=== PATIENT | female | born 1960 | race Caucasian/White ===

== ENCOUNTER 2023-12-06 10:53 | Emergency (ER) | payer BC, SELFPAY ==
[2023-12-06 11:00] VITALS: BP 181/91
[2023-12-06 11:10] VITALS: BMI 27.7
[2023-12-06] MEDS: TYLENOL 650 MG PO (11:46)
[2023-12-06] MEDS: DECADRON 10 MG PO (11:46)
[2023-12-06] MEDS: MOTRIN 400 MG PO (11:46)
--- NOTE | 2023-12-06 12:02 | ED.GENMED ---
History of Present Illness
General
Chief Complaint: Musculo-Skeletal Complaint
Source: patient
Exam Limitations: none
Time Seen by Provider: 12/06/23 11:08
Nursing documentation reviewed up to this point in time: agreed with
History of Present Illness
History of Present Illness:
Patient presents to ED secondary to persistent left-sided neck pain, after waking from sleep with pain approximate 1 month ago. Patient states that she is currently going through divorce and her divorce proceedings has gotten worse, prior to onset
of her neck pain. Denies direct trauma. Denies loss of sensation or weakness. Denies fever or chills. Denies headache. Pain is present at rest, but worse with any neck movement. Denies chest pain or shortness of breath. Denies recent travel
or surgery. Denies nausea or vomiting. Denies previous history of similar symptoms. Denies previous neck injury.
Past History
Past History
ED Past Medical History: Other (Kidney stones) and Other (DVT)
ED Past Surgical History: None
Social History
Tobacco: Non-smoker
Alcohol: Occasional
Drug: None
Personal:
Living: with family
Employment: Employed
Family History
Family History: Other (no gout)
Review of Systems
Review of Systems
Allergies reviewed?: Yes
All Other Systems: ROS reviewed and negative except as documented in HPI and ROS
Constitutional: Reports no symptoms; Denies fever
EENT: Reports no symptoms; Denies sore throat
Respiratory: Reports no symptoms; Denies trouble breathing
Cardiac: Reports no symptoms; Denies chest pain
Musculoskeletal: Reports neck pain
Skin: Reports no symptoms
Neurological: Reports no symptoms; Denies dizzy, headache, weakness or numbness
Phy Exam
Physical Exam
Physical Exam:
Physical Exam
General: mild painful distress, not acutely ill. afebrile
Head: nc/at. eomi
Neck: supple. no meningeal signs. normal posterior pharynx. ROM, limited due to pain. mild diffuse neck, as well as upper back tenderness to palpation, without swelling/deformity
Neuro: alert and oriented. no focal neurological deficits
Skin: no rash
Psychiatric: well kept. interactive and cooperative
Extremities: no edema. no calf tenderness.
Course
Orders/Labs/Results
Orders:
Orders
12/06/23 11:42
Acetaminophen [Tylenol] 650 mg PO NOW STA
Dexamethasone Pf [Decadron] 10 mg PO NOW STA
Ibuprofen [Motrin] 400 mg PO NOW STA
12/06/23 11:43
CR Cervical Spine 4 Or 5 Vw Urgent
Comment:
Reason For Exam: neck pain
12/06/23 11:54
D-Dimer Urgent
12/06/23 12:31
Ice Pack-Treatment DIRECTED
Location: neck
Vital Signs
Initial and Last Documented VS:
Initial Vital Signs
Temp Pulse Resp BP Pulse Ox
97.7 F 87 18 181/91 100
12/06/23 11:00 12/06/23 11:00 12/06/23 11:00 12/06/23 11:00 12/06/23 11:00
Last Documented Vital Signs
Temp Pulse Resp BP Pulse Ox
97.7 F 70 18 144/78 100
12/06/23 11:00 12/06/23 12:50 12/06/23 12:50 12/06/23 12:50 12/06/23 12:50
MDM/Problems Addressed
MDM/Problems Addressed:
Cervical spine x-ray: no acute findings.
History and exam consistent with nonspecific neck pain, with associated muscle spasm, likely multifactorial including, possible arthritis versus underlying disc disease versus increased recent stress. Otherwise, patient is afebrile and
neurovascularly intact.
D-dimer checked, secondary to patient's previous history of nonspecific DVT.
Patient will be discharged home in stable condition, with recommendation to follow-up with her primary care physician for reevaluation, including potential MRI as an outpatient, if symptoms persist.
*Critical Care Note
Total Time (30-74mins, 75-104mins- exclusive of procedures): Not Applicable
ED Attending Note
-
Portions of this chart may have been created with voice recognition software.� Occasional wrong word or��sound alike� substitutions may have occurred due to the inherent limitations of voice recognition software.
Discharge Plan
Departure
Patient Disposition: Home (Routine Discharge)
Date of Disposition: 12/06/23
Time of Disposition: 13:11
Patient with high blood pressure during this ER visit?: Yes
Discharge Problem:
Neck pain
Instructions: Neck Pain ED
Prescriptions:
New
diazepam [Valium] 2 mg tablet
2 mg PO TID PRN (Reason: muscle spasm) Qty: 5 0RF
ibuprofen 600 mg tablet
600 mg PO TID PRN (Reason: Pain) Qty: 20 0RF
No Action
Tylenol Pm
3 tab PO HS
rivaroxaban [Xarelto] 15 MG tablet
20 mg PO DAILY
oxycodone-acetaminophen 5 MG/325 MG tablet
1 tab PO Q4HPRN PRN (Reason: pain) Qty: 13 0RF
tamsulosin 0.4 MG capsule
0.4 mg PO DAILY Qty: 7 0RF
ondansetron 4 MG tablet,disintegrating
4 mg PO TIDPRN PRN (Reason: NAUSEA) Qty: 9 0RF
hydrocodone-acetaminophen 1 TABLET tablet
1 - 2 tab PO Q4HPRN PRN (Reason: pain) Qty: 15 0RF
ondansetron 4 MG tablet,disintegrating
4 mg PO TIDPRN PRN (Reason: nausea/vomiting) Qty: 15 0RF
ibuprofen 600 MG tablet
600 mg PO Q6HPRN PRN (Reason: pain) Qty: 20 0RF
tamsulosin 0.4 MG capsule
0.4 mg PO DAILY Qty: 15 0RF
levofloxacin 500 MG tablet
500 mg PO DAILY Qty: 7 0RF
Referrals:
Nghia Brock MD [Family Provider] -
Activity Restrictions/Additional Instructions:
As discussed, please follow-up with your primary care physician for reevaluation, including potential MRI as an outpatient, if your neck pain persists. Your prescriptions have been sent electronically to [facility] in [place].
Interventions
Interventions:
*Risk Screen - Suicide Last Done: 12/06/23 11:02
*General Assessment Last Done: 12/06/23 11:10
*Neglect/Abuse Screening Last Done: 12/06/23 11:02
*Nursing Disposition Last Done: 12/06/23 13:48
ED-Musculoskeletal Assessment Last Done: 12/06/23 11:10
Discharge Date and Time
Discharge Date/Time: 12/06/23 13:48
Print Language: LIBYAN
[2023-12-06 12:46] LABS: D-Dimer < 0.27 ug/mlFEU (0.00-0.50)
[2023-12-06 12:50] VITALS: BP 144/78
== END 2023-12-06 13:48 | disposition home or self-care (01) ==
LOC: EMR 10:53
PROVIDERS: EMERGENCY PHYSICIAN Emergency Medicine; FAMILY PHYSICIAN Family Medicine
DX: M54.2 Cervicalgia (principal); R03.0 Elevated blood-pressure reading, without diagnosis of hypertension
CPT/HCPCS: 99284; 72050; 85379

== ENCOUNTER 2024-03-13 18:41 | Inpatient (IN) | payer BC, SELFPAY ==
[2024-03-13 13:33] VITALS: BP 140/73
[2024-03-13 14:08] LABS: ALT (SGPT) 16 U/L (0-35); AST (SGOT) 15 U/L (14-36); Albumin 4.3 g/dl (3.5-5.0); Alkaline Phosphatase 65 U/L (38-126); Blood Urea Nitrogen 14 mg/dl (7-17); Calcium 9.6 mg/dl (8.4-10.2); Carbon Dioxide 23 mmol/L (22-30); Chloride 101 mmol/L (98-107); Glucose 193 mg/dl (70-99); Potassium 4.1 mmol/L (3.5-5.1); Sodium 138 mmol/L (135-145); Total Bilirubin 0.4 mg/dl (0.2-1.3); Total Protein 7.3 g/dl (6.3-8.2); eGFR > 60.00
[2024-03-13 14:12] LABS: COVID-19 Antigen Negative (Negative)
[2024-03-13 14:23] LABS: % Basophils 0.3 % (0-2); % Immature Granulocytes 0.8 % (0-0.5); % Lymphocytes 5.9 % (20.5-51.1); % Monocytes 8.4 % (1.7-9.3); % Neutrophils 84.6 % (42.2-75.2); Absolute Basophils 0.1 10^3/uL (0-0.2); Absolute Immature Granulocytes 0.1 10^3/uL (0-0.05); Absolute Monocytes 1.5 10^3/uL (0.1-0.6); Absolute Neutrophils 14.5 10^3/uL (1.4-6.5); Hemoglobin 12.9 g/dL (12.0-16.0); Mean Corp Hgb Conc. 33.9 g/dL (33.0-37.0); Mean Corpuscular Hgb 30.6 pg (27.0-31.0); Mean Platelet Volume 9.3 fL (7.4-10.4); Nucleated Red Blood Cells % 0 %; Platelet Count 315 10^3/uL (130-400); Red Blood Cell Count 4.22 10^6/uL (4.20-5.40); Red Cell Dist. Width 12.3 % (11.5-14.5); White Blood Cell Count 17.2 10^3/uL (4.8-10.8)
--- NOTE | 2024-03-13 14:31 | ED.GENMED ---
History of Present Illness
General
Chief Complaint: Flank Pain
Source: patient and family
Exam Limitations: none
Time Seen by Provider: 03/13/24 13:55
Nursing documentation reviewed up to this point in time: agreed with
History of Present Illness
History of Present Illness:
63-year-old female remote history of DVT not currently anticoagulated presenting to the emergency department today with concerns of cough upper respiratory symptoms over the past 2 weeks. Went to urgent care yesterday was started on steroid and
azithromycin. Ongoing cough. Denies significant shortness of breath or chest pain. Also noticed left-sided flank discomfort and claims that sometimes when she coughs too hard she will 'dislodge a kidney'.. She claims this feels similar to
previous kidney stones. The discomfort to the left side is intermittently sharp and achy starting mainly today no changes urination no fevers.
Past History
Past History
ED Past Medical History: Other (Kidney stones) and Other (DVT)
ED Past Surgical History: None
Social History
Tobacco: Non-smoker
Alcohol: Occasional
Drug: None
Personal:
Living: with family
Employment: Employed
Family History
Family History: Other (no gout)
Review of Systems
Review of Systems
Allergies reviewed?: Yes
All Other Systems: ROS reviewed and negative except as documented in HPI and ROS
Phy Exam
Physical Exam
Physical Exam:
GENERAL: Alert , in no apparent distress
EYE: pupils equal and reactive
NECK: Supple, no significant adenopathy.
ENT: o/p clr, mmm.
CARDIAC: Regular rate and rhythm .
LUNGS: Clear breath sounds bilaterally, no acute respiratory distress, no wheezes/rales/rhonchi
ABDOMEN: Soft, without focal tenderness, no r/g, no cvat
NEUROLOGICAL: Alert and oriented, no focal neuro deficits
SKIN: Warm and dry, skin intact.
MUSCULOSKELETAL: No edema, well perfused.
PSYCH: Normal and appropriate interaction.
Course
Orders/Labs/Results
Orders:
Orders
03/13/24 13:41
COVID-19 Antigen Urgent
Source: Nasal Swab
Complete Blood Count/With Diff Urgent
Comprehensive Metabolic Panel Urgent
INF RAPID [Influenza A+B Rapid Molecular] Urgent
YARELI Source: Nasal Swab
Specimen Description:
Date Specimen was Collected: 03/13/24
Time Specimen was Collected: 13:33
03/13/24 13:56
CT Abd/pel Without Iv Or Oral Urgent
Comment:
Reason For Exam: flank pain left side hx of stones
03/13/24 14:28
Ketorolac [Toradol] 15 mg IV NOW STA
Ondansetron Injectable [Zofran] 4 mg IV NOW STA
Chest [CR Chest - 2 Views ] Urgent
Comment:
Reason For Exam: cp sob
03/13/24 14:29
0.9% Sodium Chloride 1000 ml [Nss] 1,000 ml IV BOLUS
03/13/24 16:32
Urinalysis Reflex To Culture Urgent
Date Specimen was Collected: 03/13/24
Time Specimen was Collected: 13:33
Urine Microscopic Reflex Cult Urgent
Urine Culture Urgent
YARELI Source: U
Specimen Description:
Date Specimen was Collected: 03/13/24
Time Specimen was Collected: 13:33
03/13/24 17:23
CefTRIAXone [Rocephin] 1,000 mg IV NOW STA
Abnormal Lab Results
03/13/24 03/13/24
13:41 16:32
WBC 17.2 H 10^3/uL
(4.8-10.8)
Abs Immat Gran (auto) 0.1 H 10^3/uL
(0-0.05)
Absolute Neuts (auto) 14.5 H 10^3/uL
(1.4-6.5)
Absolute Lymphs (auto) 1.0 L 10^3/uL
(1.2-3.4)
Absolute Monos (auto) 1.5 H 10^3/uL
(0.1-0.6)
Immature Gran % 0.8 H %
(0-0.5)
Neutrophils % 84.6 H %
(42.2-75.2)
Lymphocytes % 5.9 L %
(20.5-51.1)
Glucose 193 H mg/dl
(70-99)
Ur Occult Blood Reflex 3+ A
(Negative)
Urine Nitrite (Reflex) Positive A
(Negative)
Leukocyte Esterase Rfl 2+ A
(Negative)
Urine RBC 3-6 A /HPF
(0-2)
Urine WBC (Reflex) 26-30 A /HPF
(0-5)
Urine Bacteria (Reflex) Many A
(Negative)
Urine Albumin (Reflex) 1+ A
(Neg - Trace)
03/13/24 13:41
03/13/24 13:41
Vital Signs
Initial and Last Documented VS:
Initial Vital Signs
Temp Pulse Resp BP Pulse Ox
98.9 F 104 18 140/73 99
03/13/24 13:33 03/13/24 13:33 03/13/24 13:33 03/13/24 13:33 03/13/24 13:33
Last Documented Vital Signs
Temp Pulse Resp BP Pulse Ox
100.4 F H 104 18 133/61 100
03/13/24 17:42 03/13/24 17:42 03/13/24 17:42 03/13/24 17:42 03/13/24 17:42
MDM/Problems Addressed
MDM/Problems Addressed:
63-year-old female presenting to the emergency department with upper respiratory symptoms over the past 2 weeks. Started on steroids and azithromycin yesterday but is concerned she could have a pneumonia. She does have ongoing cough denies
shortness of breath or chest pain. Also noticed intermittent left-sided flank pain over the past few hours. She believes this could be denies any fevers mildly tachycardic on arrival white count elevated to 17.2 however she just started high-dose
steroids. Here her urinalysis appears to be consistent with infection many bacteria significant white blood cells. CT scan was performed that showed inflammation to the kidney potentially consistent with Haroon however there is also hydro unclear if
there is a recently passed stone or some other obstructive measure. This was discussed with the patient. Here she still in pain and feels. Concerning this plan to admit for monitoring and further IV antibiotic and potential consultation as needed.
*Critical Care Note
Total Time (30-74mins, 75-104mins- exclusive of procedures): Not Applicable
ED Attending Note
-
Portions of this chart may have been created with voice recognition software.� Occasional wrong word or��sound alike� substitutions may have occurred due to the inherent limitations of voice recognition software.
Discharge Plan
Departure
Patient Disposition: Admit
Date of Disposition: 03/13/24
Time of Disposition: 18:19
Admit to: Med/Surg
Admit to doctor: Maynor
Presentation/result/management discussed w/ accepting MD/DO: Hospitalist
Patient with high blood pressure during this ER visit?: No
Condition: Good
Covid-19: Not Applicable
Discharge Problem:
Pyelonephritis
Prescriptions:
No Action
Tylenol Pm
3 tab PO HS
rivaroxaban [Xarelto] 15 MG tablet
20 mg PO DAILY
oxycodone-acetaminophen 5 MG/325 MG tablet
1 tab PO Q4HPRN PRN (Reason: pain) Qty: 13 0RF
tamsulosin 0.4 MG capsule
0.4 mg PO DAILY Qty: 7 0RF
ondansetron 4 MG tablet,disintegrating
4 mg PO TIDPRN PRN (Reason: NAUSEA) Qty: 9 0RF
hydrocodone-acetaminophen 1 TABLET tablet
1 - 2 tab PO Q4HPRN PRN (Reason: pain) Qty: 15 0RF
ondansetron 4 MG tablet,disintegrating
4 mg PO TIDPRN PRN (Reason: nausea/vomiting) Qty: 15 0RF
ibuprofen 600 MG tablet
600 mg PO Q6HPRN PRN (Reason: pain) Qty: 20 0RF
tamsulosin 0.4 MG capsule
0.4 mg PO DAILY Qty: 15 0RF
levofloxacin 500 MG tablet
500 mg PO DAILY Qty: 7 0RF
diazepam [Valium] 2 mg tablet
2 mg PO TID PRN (Reason: muscle spasm) Qty: 5 0RF
ibuprofen 600 mg tablet
600 mg PO TID PRN (Reason: Pain) Qty: 20 0RF
Referrals:
Nghia Brock MD [Family Provider] -
Interventions
Interventions:
*Risk Screen - Suicide Last Done: 03/13/24 13:33
*General Assessment Last Done: 03/13/24 13:33
*Neglect/Abuse Screening Last Done: 03/13/24 13:33
*ED COVID-19 Vaccine History Last Done: 03/13/24 13:33
SQ-Guwidm-Sktmunjlhg Assessment Last Done: 03/13/24 14:52
ED-Female Genitourinary Assessment Last Done: 03/13/24 14:52
Discharge Date and Time
Print Language: JAPANESE
[2024-03-13 14:55] VITALS: BP 135/72
[2024-03-13] MEDS: NSS 1000 IV ×2 (14:59→19:28)
[2024-03-13] MEDS: TORADOL 15 MG IV (15:00)
[2024-03-13 16:44] LABS: Urine Albumin 1+ (Neg - Trace); Urine Bilirubin Negative (Negative); Urine Character Clear (Clear); Urine Color Yellow; Urine Glucose Negative (Negative); Urine Ketone Negative (Negative); Urine Leukocyte 2+ (Negative); Urine Nitrite Positive (Negative); Urine Occult Blood 3+ (Negative); Urine Specific Gravity 1.015 (<1.030); Urine Urobilinogen Negative (Neg - 1+)
[2024-03-13 16:52] LABS: Urine Bacteria Many (Negative); Urine Squamous Cell 0-2 /LPF (Few); Urine White Cell 26-30 /HPF (0-5)
[2024-03-13] MEDS: ROCEPHIN 1000 MG IV ×2 (17:37→19:36)
[2024-03-13 17:42] VITALS: BP 133/61
--- NOTE | 2024-03-13 18:33 | HPS.HSE ---
Family Physician
-
Family Physician: Nghia Brock
Chief Complaint
-
flank pain
History of Present Illness
63-year-old female past medical history of kidney stones, DVT not on anticoagulation, presenting with cough, respiratory symptoms over the past 2 weeks. She originally had sore throat, cough, headache, cough and shortness of breath ongoing for 2
weeks. She went to urgent care yesterday and was started on steroid and azithromycin. She has been having ongoing vomiting and diarrhea over this time period. She continues to have cough, shortness of breath but denies any sore throat at this
time although she does some sore throat this morning.
Today she noticed left-sided flank pain which feels similar to prior kidney stones. Pain is sharp and achy. She denies any difficulties with urination or fever. Denies any blood in the urine.
She has seen [facility] before for lithotripsies in the past.
She denies smoking. Denies recent alcohol use.
Medical History
Past Medical History
Past Medical History: Reports Other (kidney stones, DVT not on anticoagulation,)
Past Surgical History: Reports None
Social History
Tobacco: Non-smoker
Alcohol: None
Drug: None
Family History
Family History: Not pertinent
Allergies / Home Medications
Allergies reflects when Allergies were last updated in [facility].
Home Medications with original date entered in [facility]
Allergy/Medication List:
Allergies
Allergy/AdvReac Type Severity Reaction Status Date / Time
clindamycin Allergy Unknown Unknown Verified 12/06/23 11:13
Penicillins Allergy Unknown Rash Verified 12/06/23 11:13
Home Medications
Tylenol Pm 3 tab PO HS 01/08/15
ondansetron 4 mg disintegrating tablet 4 mg PO TIDPRN PRN NAUSEA #9 tabs 01/08/15
oxycodone-acetaminophen 5 mg-325 mg tablet 1 tab PO Q4HPRN PRN pain #13 tabs 01/08/15
rivaroxaban 15 mg tablet (Xarelto) 20 mg PO DAILY dvt 01/08/15
tamsulosin 0.4 mg capsule 0.4 mg PO DAILY #7 caps 01/08/15
hydrocodone 5 mg-acetaminophen 325 mg tablet 1 - 2 tab PO Q4HPRN PRN pain #15 tabs 05/13/20
ibuprofen 600 mg tablet 600 mg PO Q6HPRN PRN pain #20 tabs 05/13/20
levofloxacin 500 mg tablet 500 mg PO DAILY #7 tabs 05/13/20
ondansetron 4 mg disintegrating tablet 4 mg PO TIDPRN PRN nausea/vomiting #15 tabs 05/13/20
tamsulosin 0.4 mg capsule 0.4 mg PO DAILY #15 caps 05/13/20
diazepam 2 mg tablet (Valium) 2 mg PO TID PRN muscle spasm #5 tabs 12/06/23
ibuprofen 600 mg tablet 600 mg PO TID PRN Pain #20 tabs 12/06/23
Review of Systems
-
History Source: Patient
A 12 point ROS was completed and negative except as noted: Yes
Constitutional: Reports No Symptoms
EENT: Reports No Symptoms
Respiratory: Reports See HPI
Cardiac: Reports No Symptoms
Abdomen/GI: Reports See HPI
: Reports No Symptoms
Musculoskeletal: Reports No Symptoms
Skin: Reports No Symptoms
Neurological: Reports No Symptoms
Endocrine: Reports No Symptoms
Hematologic/Lymphatic: Reports No Symptoms
Psych: Reports No Symptoms
Physical Exam
Vital Signs
Vital Signs
Temp Pulse Resp BP Pulse Ox
100.4 F H 104 18 133/61 100
03/13/24 17:42 03/13/24 17:42 03/13/24 17:42 03/13/24 17:42 03/13/24 17:42
Physical Exam
General: Well Developed, Well Nourished and No Apparent Distress
HEENT: NormoCephalic, Moist mucous membranes and Atraumatic
Respiratory: Clear
Cardiac: S1/S2 and Regular Rhythm; No Murmur or Rub
GI: Soft, Non Tender, Non Distended and Normal Bowel Sounds; No Organomegaly
Rectal: Deferred by Provider
Genito-urinary: Costovertebral angle tend (left )
Musculoskeletal: No Clubbing, No Cyanosis and No Edema
Skin: No Rash
Neuro: Nonfocal/grossly intact
Laboratory Results
-
03/13/24 13:41
03/13/24 13:41
Laboratory Results
Total Bilirubin 0.4 mg/dl (0.2-1.3) 03/13/24 13:41
AST 15 U/L (14-36) 03/13/24 13:41
ALT 16 U/L (0-35) 03/13/24 13:41
Alkaline Phosphatase 65 U/L (38-126) 03/13/24 13:41
Data Reviewed
-
Lab Data: Labs Reviewed by me
Old Records: Reviewed
Impression/Plan
-
IMPRESSION:
PLAN:
# Sepsis (fever, leukocytosis, tachycardia) secondary to acute left pyelonephritis
# History of kidney stones
-Chest x-ray unremarkable
-CT abdomen pelvis shows moderate left perinephric edema and moderate left hydronephrosis down to the level of the ureteropelvic junction with no evidence of obstructing ureteral calculus which may be due to recently passed calculus or noncalcific
obstructing entity such as urothelial tumor, subscapular or blood clot
-Urinalysis 26-30 WBC
-Check urine culture, blood culture
-IV fluids
-Ceftriaxone
-Zofran, ketorolac, Dilaudid as needed
-N.p.o.
-Urology consulted
# Upper respiratory infection likely viral
-Chest x-ray unremarkable
-COVID and influenza negative
History of DVT
-Previously treated with anticoagulation
Full code
DVT prophylaxis�heparin
N.p.o.
--- NOTE | 2024-03-13 19:06 | CONS.URO ---
Consultation
-
Date/Time Consultation Requested: 03/13/20241829
Date/Time Consultation Performed: 1854
Requesting Provider: ED
Performing Provider: Sergio
Reason for Consultation: left pyelonephritis
Medical History
History of Present Illness
63 yo female with h/o nephrolithiasis. historically a patient of [facility] [Jeimy Russo/James] at [facility] and ], reports ~ 2 weeks h/o sore throat, cough, headache, cough, vomiting, diarrhea and shortness of breath. She went to urgent care
yesterday and was started on steroid and azithromycin.
Today she noticed left-sided flank pain which feels similar to prior kidney stones. Pain is sharp and achy. She denies any difficulties with urination or fever. Denies any blood in the urine.
Presented to ED and now is to be admitted to hospitalists'.
Past Medical History
Past Medical History: Other (PVT/PE)
Past Surgical History: Urological (03/2014 Cysto + ureteral stenting then ESWL)
Allergies/Home Medications
Allergies
Allergy/AdvReac Type Severity Reaction Status Date / Time
clindamycin Allergy Unknown Unknown Verified 12/06/23 11:13
Penicillins Allergy Unknown Rash Verified 12/06/23 11:13
Home Medications
�Medication �Instructions �Recorded �Confirmed �Type
azithromycin 500 mg tablet 500 mg PO DAILY 03/13/24 03/13/24 History
methylprednisolone 4 mg tablets in 0 mg PO PER PKG DIR 03/13/24 03/13/24 History
a dose pack
Physical Exam
Vital Signs
Vital Signs
Temp Pulse Resp BP Pulse Ox
100.4 F H 104 18 133/61 100
03/13/24 17:42 03/13/24 17:42 03/13/24 17:42 03/13/24 17:42 03/13/24 17:42
Lab / Testing Results
Laboratory Results
03/13/24 13:41
03/13/24 13:41
Physical Exam
adult female on ED gurney
appears ill
Genito-urinary: No Costovertebral Tend
Neuro: Awake and Alert
Psych: Calm
Assessment / Plan
-
Suspected left pyelonephritis with perinephric edema and some proximal ureteral dilatation and edema but no stones in ureter; bilateral non-obstructing renal stones.
Leukocytosis might partially reflect corticosteroid.
Rec:
stat Lactic Acid
aggressive hydration, antibiosis and supportive measures
It does NOT appear that urgent placement of a left ureteral stent would provide any benefit.
PAtient was informed that largest of left renal stones is likely too large to pass and should be address surgically after resolution of infection.
Data Reviewed
-
CT Scan: Image personally visualized and interpreted
Lab Data: Labs Reviewed
Old Records: Reviewed
[2024-03-13] MEDS: TYLENOL 650 MG PO (19:26)
[2024-03-13] MEDS: STERILE WATER FOR INJECTION 10 ML IV (19:36)
[2024-03-13 19:40] VITALS: BP 144/66
[2024-03-13 20:39] VITALS: BMI 25.0
--- NOTE | 2024-03-13 20:54 | PHA.KIN.INIT ---
Assessment / Plan
- Assessment
Renal Function: Appears similar to baseline
Has Patient Previously Received this Agent: Previous Regimen was (03/09/14 GENTAMICIN 100MG IV Q12H)
- Plan
GENTAMICIN 100MG IV Q12H - TR = 0.34/P = 3.6
Initial Pharmacokinetics Note
- -
Patient Age: 63
Patient Sex: Female
Antibiotic: Gentamicin
Antibiotic Day #: 1
Indication: Genito-Urinary Tract
Requesting Provider: Ravi CARTER
Pertinent Antimicrobial Allergies:
Allergies
Penicillins Allergy (Unknown, Verified 12/06/23 11:13)
Rash
clindamycin Allergy (Unknown, Verified 12/06/23 11:13)
Unknown
rash
Height / Weight:
Height 5 ft 5 in
Actual Weight 68.039 kg
- Vital Signs / Lab results
Temp Pulse Resp BP Pulse Ox
100.7 F H 110 20 134/75 95
03/13/24 20:40 03/13/24 19:40 03/13/24 19:40 03/13/24 19:40 03/13/24 19:40
Maximum Temperature:
Lab Results - Hematology
03/13/24
13:41
WBC 17.2 H
Lab Results - Chemistry
03/13/24
13:41
BUN 14
Creatinine 0.9
Albumin 4.3
Lab Results - Urine
03/13/24
16:32
Urine Nitrite (Reflex) Positive A
Leukocyte Esterase Rfl 2+ A
Urine WBC (Reflex) 26-30 A
Ur Squamous Epith Cells 0-2
Urine Bacteria (Reflex) Many A
Microbiology Results
03/13/24 13:41 Influenza Types A & B (ARMAND) - Final
Nasal Swab Negative for Influenza A & B, NAAT
Negative results must be combined with clinical observations
and patient history.
Nucleic Acid Amplification test (NAAT)performed on the
[employer] platform.
Historical Micro:
Concomitant Antimicrobials:
[2024-03-13] MEDS: HEPARIN 5000 UNITS SC (20:56)
[2024-03-13] MEDS: GENTAMICIN 53 MG IV (21:22)
[2024-03-13 22:44] VITALS: BP 108/56; BMI 25.6
[2024-03-14] MEDS: TYLENOL 650 MG PO ×3 (00:22→15:32)
[2024-03-14 01:11] LABS: % Basophils 0.3 % (0-2); % Immature Granulocytes 0.7 % (0-0.5); % Lymphocytes 12.4 % (20.5-51.1); % Monocytes 8.8 % (1.7-9.3); % Neutrophils 77.8 % (42.2-75.2); Absolute Basophils 0.1 10^3/uL (0-0.2); Absolute Immature Granulocytes 0.2 10^3/uL (0-0.05); Absolute Monocytes 2.2 10^3/uL (0.1-0.6); Absolute Neutrophils 18.9 10^3/uL (1.4-6.5); Hematocrit 33.8 % (37.0-47.0); Hemoglobin 11.9 g/dL (12.0-16.0); Mean Corp Hgb Conc. 35.2 g/dL (33.0-37.0); Mean Platelet Volume 8.9 fL (7.4-10.4); Nucleated Red Blood Cells % 0 %; Platelet Count 300 10^3/uL (130-400); Red Blood Cell Count 3.84 10^6/uL (4.20-5.40); Red Cell Dist. Width 12.4 % (11.5-14.5); White Blood Cell Count 24.3 10^3/uL (4.8-10.8)
[2024-03-14 01:28] LABS: ALT (SGPT) 14 U/L (0-35); AST (SGOT) 16 U/L (14-36); Albumin 3.6 g/dl (3.5-5.0); Alkaline Phosphatase 65 U/L (38-126); Blood Urea Nitrogen 14 mg/dl (7-17); Calcium 8.8 mg/dl (8.4-10.2); Carbon Dioxide 18 mmol/L (22-30); Chloride 105 mmol/L (98-107); Estimated Creatinine Clearance 58 ml/min; Glucose 167 mg/dl (70-99); Potassium 3.7 mmol/L (3.5-5.1); Sodium 136 mmol/L (135-145); Total Bilirubin 0.4 mg/dl (0.2-1.3); Total Protein 6.4 g/dl (6.3-8.2); eGFR > 60.00
--- NOTE | 2024-03-14 03:01 | PTCARENOTE ---
Addendum entered by Abbi Garcia RN 03/14/24 07:14:
labs drawn and updated [employer]ORE TENDER Malika Mccain. recheck temp and given Tylenol at 0540 for temp 102.7. ice packs applied.
Original Note:
at 2244 pt aaox3, reports abdominal pain and nausea. - offered pt prn medications but declined. pt has ivf running. pt sound SOB and wheeze but SpO2= 99% on room air, RR=20 and lungs CTA. flu and covid negative. pt oriented to room w/ call gallardo in
reach. temp=98.5.
labs sent
at 0030 pt c/o feeling cold, rigors, and wlfn=009.7 - administered Tylenol and ice pack for temp. pt also n/v- 300ml. - offered prn nausea meds but pt declined.
at 0300 temp= 100.6 sh=838/50 p=89. pt currently sleeping.
[2024-03-14 03:05] VITALS: BP 103/50
[2024-03-14] MEDS: ANESTHETIC LOZENGE 1 LOZENGE PO (03:33)
[2024-03-14] MEDS: GENTAMICIN 50 IV ×2 (05:25→17:37)
[2024-03-14] MEDS: NSS 1000 IV ×2 (05:25→17:09)
[2024-03-14 07:40] VITALS: BP 116/59
[2024-03-14] MEDS: HEPARIN SC ×2 (09:24→19:58)
--- NOTE | 2024-03-14 14:26 | PHA.KIN.UP ---
Assessment / Plan
- Assessment
Renal Function: Stable
WBC's are: Trending Up
In the past 24 hrs, patient has been: Febrile
- Plan: Continue Present Regimen
Continue: Gentamicin 60mg Q12H
Level ordered to be drawn: consider levels in next few days
- Follow Up
Pharmacy will continue to follow.
FollowUp Pharmacokinetics Note
- -
Patient Age: 63
Patient Sex: Female
Antibiotic: Gentamicin
Antibiotic Day #: 2
Indication: Genito-Urinary Tract
Requesting Provider: Dr. Basilio Hill
Pertinent Antimicrobial Allergies:
Penicillins - Rash
clindamycin - Unknown
rash
Height / Weight:
Height 5 ft 5 in
Actual Weight 69.808 kg
- Vital Signs / Lab Results
Temp Pulse Resp BP Pulse Ox
98.9 F 93 18 116/59 96
03/14/24 11:21 03/14/24 07:40 03/14/24 07:40 03/14/24 07:40 03/14/24 07:40
Lab Results - Hematology
03/13/24 03/14/24
13:41 01:00
WBC 17.2 H 24.3 H
Lab Results - Chemistry
03/13/24 03/14/24
13:41 01:00
BUN 14 14
Creatinine 0.9 0.9
Estimated Creat Clear 58
Albumin 4.3 3.6
03/13/24
23:21
Lactic Acid 1.0
Lab Results - Urine
03/13/24
16:32
Urine Nitrite (Reflex) Positive A
Leukocyte Esterase Rfl 2+ A
Ur Squamous Epith Cells 0-2
Microbiology Results
03/13/24 16:32 Urine Culture - Preliminary
Urine Escherichia coli
01/09/25 13:41 Influenza Types A & B (ARMAND) - Final
Nasal Swab Negative for Influenza A & B, NAAT
Negative results must be combined with clinical observations
and patient history.
Nucleic Acid Amplification test (NAAT)performed on the
[employer] platform.
Concomitant Antimicrobials: ceftriaxone
--- NOTE | 2024-03-14 14:45 | CM ---
Patient seen at bedside.
IA completed
Lives alone in a multi story home with 3 steps to enter, flight to second floor
PLOF: Independent, no device
Denies DME
Denies insecurities
Denies HH/Rehab
PCP: Nghia Brock
Pharmacy: [facility]
Plan: home, no needs
son to transport
[2024-03-14 15:17] VITALS: BP 130/66
[2024-03-14] MEDS: PROTONIX 40 MG PO (15:32)
--- NOTE | 2024-03-14 16:07 | W.PN.HOSP.TC ---
Today's Communication/Plan
-
CW ABX
Follow cx data
Assessment / Plan
Assessment / Plan
# Sepsis (fever, leukocytosis, tachycardia) secondary to acute left pyelonephritis
# History of kidney stones
-Chest x-ray unremarkable
-CT abdomen pelvis shows moderate left perinephric edema and moderate left hydronephrosis down to the level of the ureteropelvic junction with no evidence of obstructing ureteral calculus which may be due to recently passed calculus or noncalcific
obstructing entity such as urothelial tumor, subscapular or blood clot
-Urinalysis 26-30 WBC
-Await urine culture, blood culture
- DC further IV fluids .No GI symptoms today. Encourage oral intake
-cw Ceftriaxone
-cw Zofran, ketorolac, Dilaudid as needed
-Urology input noted - no urgent interventions indicated
# Upper respiratory infection likely viral
-Chest x-ray unremarkable
-COVID and influenza negative
History of DVT
-Previously treated with anticoagulation
Full code
DVT prophylaxis�heparin
Anticipated Discharge: 24 - 48 hours
Subjective/Interval History
-
Date of Service: March 14, 2024
Resolved left flank pain.
No nausea vomiting.
No fever chills.
Objective Data
-
Vital Signs:
Vital Signs
Temp Pulse Resp BP Pulse Ox
100.3 F 98 18 130/66 99
03/14/24 15:17 03/14/24 15:17 03/14/24 15:17 03/14/24 15:17 03/14/24 15:17
I&O
03/13/24 03/14/24 03/15/24
06:59 06:59 06:59
Intake Total 1223 / 1223
Output Total 1100 / 1100
Balance 123 / 123
Physical Exam
-
Respiratory: Non Labored Respirations; Negative Accessory Resp Muscle Use
Cardiac: Regular Rhythm, S1/S2 and Tachycardic
GI: Soft, Nontender, Nondistended and Normal Bowel Sounds
Genito-urinary: No Costovertebral Tender
Neuro: AO x 3
Psych: Calm
Data Reviewed
-
Labs: Labs Reviewed by me
[2024-03-14] MEDS: ROCEPHIN 2000 MG IV (17:09)
[2024-03-14] MEDS: STERILE WATER FOR INJECTION 20 ML IV (17:10)
--- NOTE | 2024-03-14 18:00 | W.PN.URO.CBU ---
Today's Communication / Plan
-
npo for op room in am if stil sick please contact dr salcedo if hermodynaically gettng wosre ir=e dropping blood pressure low ozxygen sat tachycardia
Assessment / Plan
-
pt with left hydro on steriods with e coli uti sens await but hydro no obvioud stone in uretr or upj but hydro wbc gihfger despite gent/ iv cephalosporin will obsee tonight unless unstable await cxs but if uti pt shioild be getting
better despite streroids raven place stent ih=[f no better ie pain, or increased wbc, or increae fevr will just change iv abs if resistant
Diagnosis
-
Date of Service: March 14, 2024
-
Patient Diagnosis:
uti fever left hydro no stones in upj but pyelo hydro and fevr chills
Post Op Day:
Subjective
-
no pain but feels sick febrile
Objective
-
Vital Signs
Temp Pulse Resp BP Pulse Ox
98.6 F 98 18 130/66 99
03/14/24 17:36 03/14/24 15:17 03/14/24 15:17 03/14/24 15:17 03/14/24 15:17
Intake and Output
03/13/24 03/14/24 03/15/24
06:59 06:59 06:59
Intake Total 1223 / 1223 3010 / 3010
Output Total 1100 / 1100
Balance 123 / 123 3010 / 3010
Intake:
Oral fluids 120 / 120 2160 / 2160
IV fluids (Total) 1000 / 1000 800 / 800
IV piggybacks 103 / 103 50 / 50
Output:
Emesis 300 / 300
Urine, Voided 800 / 800
Other:
Number of approximated MODERATE 4
amounts of urine
Laboratory Results
03/14/24 01:00
03/14/24 01:00
Review of Systems
-
Constitutional: Fatigue, Night Sweats and Chills
Physical Exam
-
General - well developed, well nourished, no acute distress
Chest - clear bilaterally
Abdomen - soft, non-tender, positive bowel sounds, no CVAT, no incisional pain or distention
Genitalia - normal
Rectal - normal
Skin - warm & dry with no rash
Neuro - AOx3, no motor deficits
Extremities - no clubbing, no cyanosis, no edema
Incision - clean, dry
Dressing - clean, dry, intact
Care Review
Data Reviewed
Discussed with: Hospitalist and Nursing
CT Scan: Image Pers Reviewed
[2024-03-14 22:45] VITALS: BP 116/54
[2024-03-15] VITALS (10 sets, daily range): BP systolic 103–143; BP diastolic 51–82
[2024-03-15] MEDS: TYLENOL 650 MG PO ×3 (03:03→21:48)
[2024-03-15] MEDS: NSS 1000 IV ×2 (05:00→13:45)
[2024-03-15] MEDS: GENTAMICIN 50 IV (05:06)
[2024-03-15 07:13] LABS: Blood Urea Nitrogen 5 mg/dl (7-17); Calcium 8.1 mg/dl (8.4-10.2); Carbon Dioxide 24 mmol/L (22-30); Chloride 106 mmol/L (98-107); Estimated Creatinine Clearance 75 ml/min; Glucose 119 mg/dl (70-99); Potassium 3.1 mmol/L (3.5-5.1); Sodium 138 mmol/L (135-145); eGFR > 60.00
[2024-03-15 07:30] LABS: Hematocrit 29.8 % (37.0-47.0); Hemoglobin 10.2 g/dL (12.0-16.0); Mean Corp Hgb Conc. 34.2 g/dL (33.0-37.0); Mean Corpuscular Hgb 30.4 pg (27.0-31.0); Mean Platelet Volume 9.1 fL (7.4-10.4); Platelet Count 226 10^3/uL (130-400); Red Blood Cell Count 3.35 10^6/uL (4.20-5.40); Red Cell Dist. Width 12.4 % (11.5-14.5); White Blood Cell Count 16.2 10^3/uL (4.8-10.8)
[2024-03-15] MEDS: HEPARIN SC ×2 (08:11→20:01)
[2024-03-15] MEDS: PROTONIX 40 MG PO (08:12)
--- NOTE | 2024-03-15 09:09 | W.PN.URO.CBU ---
Today's Communication / Plan
-
to op room
Assessment / Plan
-
pt with left hydro on steriods with e coli uti sens await despite 2 broad spectrum abs stil rogors chills her wbc went conley=wn but still 16 k feels worse stil febrile despite runnng tylenol FDiscussed with pt options we decided that a
stent dure to hysdronephrosis and ryan may help her recover but does add discomdpfort and a foreign body in site of infection but the fact is the pt is not responding to targetd iv abs and feels toxic raven place stent ryan
Diagnosis
-
Date of Service: March 15, 2024
-
Patient Diagnosis:
Post Op Day:
Patient Diagnosis:
uti fever left hydro no stones in upj but pyelo hydro and fevr chills
Post Op Day:
Subjective
-
lfeels poorly chills rigors less flank pain
Objective
-
Vital Signs
Temp Pulse Resp BP Pulse Ox
97.8 F 78 16 127/72 96
03/15/24 07:00 03/15/24 07:00 03/15/24 07:00 03/15/24 07:00 03/15/24 07:00
Intake and Output
03/14/24 03/15/24 03/16/24
06:59 06:59 06:59
Intake Total 1223 / 1223 4690 / 4690
Output Total 1100 / 1100
Balance 123 / 123 4690 / 4690
Intake:
Oral fluids 120 / 120 2640 / 2640
IV fluids (Total) 1000 / 1000 1950 / 1950
IV piggybacks 103 / 103 100 / 100
Output:
Emesis 300 / 300
Urine, Voided 800 / 800
Other:
Number of approximated MODERATE 5
amounts of urine
Laboratory Results
03/15/24 06:21
03/15/24 06:21
Review of Systems
-
Constitutional: Fatigue and Chills
Abdomen/GI: Abdominal Pain
Physical Exam
-
General -sick appears toxic rigors
Chest - clear bilaterally
Abdomen - soft, non-tender, positive bowel sounds, no CVAT, no incisional pain or distention
Genitalia - normal
Rectal - normal
Skin - warm & dry with no rash
Neuro - AOx3, no motor deficits
Extremities - no clubbing, no cyanosis, no edema
Incision - clean, dry
Dressing - clean, dry, intact
Care Review
Data Reviewed
Discussed with: Hospitalist, Nursing and Family
CT Scan: Image Pers Reviewed
--- NOTE | 2024-03-15 09:46 | W.SUR.POST ---
Surgical Immediate Post Op
Note
Pre Op Diagnosis: complex uti with left renal hydro
Post Op Diagnosis:
same
Procedure Performed:
cystoscopy rgp with placemnet 6 fr 26 cm jj stent
Primary Surgeon: jose luis
Secondary Surgeons:
Anesthesia: dr anglin and general
Estimated Blood Loss: 1cc
Fluids: nss
Drains/Shunts: 6 fr 26 cmleft jj sten 18 fr ryan
Specimens/Cultures: 0
Doppler/Duplex/Angio (Y/N):
Complications: 0
Operative Findings: gross pyuria left renal pelvis
[2024-03-15] MEDS: ZOFRAN 4 MG IV (10:39)
--- NOTE | 2024-03-15 11:35 | W.PN.HOSP.TC ---
Addendum entered and electronically signed by Rakesh Ortiz MD 03/15/24 11:40:
E. coli sensitivities noted.-Continue ceftriaxone. DC aminoglycosides.
Original Note:
Today's Communication/Plan
-
Continue with ceftriaxone.
Assessment / Plan
Assessment / Plan
# Sepsis (fever, leukocytosis, tachycardia) secondary to acute left pyelonephritis
# History of kidney stones
-Chest x-ray unremarkable
-CT abdomen pelvis shows moderate left perinephric edema and moderate left hydronephrosis down to the level of the ureteropelvic junction with no evidence of obstructing ureteral calculus which may be due to recently passed calculus or noncalcific
obstructing entity such as urothelial tumor, subscapular or blood clot
-Urinalysis 26-30 WBC
-E. coli in urine culture but not bacteremic.
-Patient had a cystoscopy with left ureteral stent placed. There was gross pyuria in the left renal pelvis noted on the cystogram. I do not see mention of any stone. Will follow-up with urology.
-Continue with ceftriaxone and follow sepsis parameters and GI symptoms.
-Encourage oral intake
-cw Zofran, ketorolac, Dilaudid as needed
# Upper respiratory infection likely viral
-Chest x-ray unremarkable
-COVID and influenza negative
History of DVT
-Previously treated with anticoagulation
Full code
DVT prophylaxis�heparin
Anticipated Discharge: 24 - 48 hours
Subjective/Interval History
-
Date of Service: March 15, 2024
Came back from a cystoscopy and left ureteral stent placement.
Feeling nauseous. Not much appetite. Taking only clears. No vomiting. Left flank pain has dissipated.
Having some loose stools. Had fever this morning but none currently. No chills.
Objective Data
-
Labs:
Laboratory Results
03/15/24
06:21
WBC 16.2 H
Hgb 10.2 L
Hct 29.8 L
Plt Count 226 D
Sodium 138
Potassium 3.1 L
Chloride 106
Carbon Dioxide 24
BUN 5 L
Creatinine 0.7
Glucose 119 H
Calcium 8.1 L
Vital Signs:
Vital Signs
Temp Pulse Resp BP Pulse Ox
97.7 F 81 16 132/65 98
03/15/24 11:00 03/15/24 11:00 03/15/24 11:00 03/15/24 11:00 03/15/24 11:00
I&O
03/14/24 03/15/24 03/16/24
06:59 06:59 06:59
Intake Total 1223 / 1223 4690 / 4690 500 / 500
Output Total 1100 / 1100 300 / 300
Balance 123 / 123 4690 / 4690 200 / 200
Review of Systems
-
EENT: Denies Sore Throat
Respiratory: Denies Cough or Trouble Breathing
Cardiac: Denies Chest Pain
Neuro: Denies Dizzy
Physical Exam
-
General: No Apparent Distress
HEENT: Moist Mucous Membranes
Respiratory: Non Labored Respirations; Negative Accessory Resp Muscle Use
Cardiac: Regular Rhythm and S1/S2
GI: Soft
Genito-urinary: No Costovertebral Tender
Neuro: AO x 3
Psych: Calm
Data Reviewed
-
Labs: Labs Reviewed by me
[2024-03-15] MEDS: TORADOL 10 MG IV (13:45)
[2024-03-15] MEDS: ROCEPHIN 2000 MG IV (17:58)
[2024-03-15] MEDS: STERILE WATER FOR INJECTION 20 ML IV (17:58)
[2024-03-16 04:25] VITALS: BP 144/72
[2024-03-16] MEDS: TORADOL 10 MG IV ×2 (06:08→13:42)
--- NOTE | 2024-03-16 06:18 | PTCARENOTE ---
pt reports abd pain r/t stents 8-10; and nausea. pt refused medications -offered throughout the night. at 0600 agreeable to Toradol - see mar. pt continues t be nausea and vomited a small amount, but declined Zofran. provided gingerale, and cool
compresses. ryan continues to be bloody tinged w/
[2024-03-16 06:41] LABS: Hematocrit 28.2 % (37.0-47.0); Hemoglobin 9.9 g/dL (12.0-16.0); Mean Corp Hgb Conc. 35.1 g/dL (33.0-37.0); Mean Corpuscular Hgb 30.8 pg (27.0-31.0); Mean Corpuscular Volume 87.9 fL (81.0-99.0); Mean Platelet Volume 9.2 fL (7.4-10.4); Platelet Count 260 10^3/uL (130-400); Red Blood Cell Count 3.21 10^6/uL (4.20-5.40); Red Cell Dist. Width 12.4 % (11.5-14.5); White Blood Cell Count 14.8 10^3/uL (4.8-10.8)
[2024-03-16 07:07] LABS: Blood Urea Nitrogen 11 mg/dl (7-17); Calcium 8.5 mg/dl (8.4-10.2); Carbon Dioxide 22 mmol/L (22-30); Chloride 108 mmol/L (98-107); Estimated Creatinine Clearance 75 ml/min; Glucose 109 mg/dl (70-99); Potassium 3.4 mmol/L (3.5-5.1); Sodium 139 mmol/L (135-145); eGFR > 60.00
[2024-03-16 07:43] VITALS: BP 132/64
[2024-03-16] MEDS: HEPARIN 5000 UNITS SC (08:06)
[2024-03-16] MEDS: PROTONIX 40 MG PO (08:07)
[2024-03-16] MEDS: KCL 20 MEQ PO (10:05)
--- NOTE | 2024-03-16 10:43 | W.PN.HOSP.TC ---
Addendum entered and electronically signed by Rakesh Ortiz MD 03/16/24 10:50:
hypokalemia -replete
Original Note:
Today's Communication/Plan
-
Continue ceftriaxone
Add antitussives and nebulizers
Add Xanax as needed.
Assessment / Plan
Assessment / Plan
# Sepsis (fever, leukocytosis, tachycardia) secondary to acute left pyelonephritis
# History of kidney stones
-Chest x-ray unremarkable
-CT abdomen pelvis shows moderate left perinephric edema and moderate left hydronephrosis down to the level of the ureteropelvic junction with no evidence of obstructing ureteral calculus which may be due to recently passed calculus or noncalcific
obstructing entity such as urothelial tumor, subscapular or blood clot
-Urinalysis 26-30 WBC
-E. coli in urine culture but not bacteremic.
-Patient had a cystoscopy with left ureteral stent placed. There was gross pyuria in the left renal pelvis noted on the cystogram. I do not see mention of any stone. Will follow-up with urology.
-Continue with ceftriaxone and follow sepsis parameters and GI symptoms.
- Improving WBC and no further fevers
-cw Zofran, ketorolac, Dilaudid as needed
# Upper respiratory infection likely viral
-Chest x-ray unremarkable
-COVID and influenza negative
- Start on nebs , antitussives
- If remains symptomatic we will reconsider use of steroids as sepsis parameters are getting better.
History of DVT
-Previously treated with anticoagulation
Full code
DVT prophylaxis�heparin
Anticipated Discharge: 24 - 48 hours
Subjective/Interval History
-
Date of Service: March 16, 2024
Left flank pain is improved so far. But her main complaint is headache, ongoing cough with phlegm.
She states 2 weeks ago she started with a cough and had flu and COVID testing so far has been negative. She in fact was put on steroids which were discontinued when she came with sepsis and UTI.
Denies any prior history of asthma. Non-smoker.
During the visit today patient was also tearful and concerned about managing himself upon discharge with her symptomatology. No history of anxiety disorder but she is feeling bit overwhelmed with the current medical situation.
Objective Data
-
Labs:
Laboratory Results
03/16/24
06:21
WBC 14.8 H
Hgb 9.9 L
Hct 28.2 L
Plt Count 260
Sodium 139
Potassium 3.4 L
Chloride 108 H
Carbon Dioxide 22
BUN 11
Creatinine 0.7
Glucose 109 H
Calcium 8.5
Vital Signs:
Vital Signs
Temp Pulse Resp BP Pulse Ox
97.5 F 72 18 132/64 95
03/16/24 07:43 03/16/24 07:43 03/16/24 07:43 03/16/24 07:43 03/16/24 10:25
I&O
03/15/24 03/16/24 03/17/24
06:59 06:59 06:59
Intake Total 4690 / 4690 2660 / 2660
Output Total 1250 / 1250
Balance 4690 / 4690 1410 / 1410
Review of Systems
-
Constitutional: Denies Fever or Chills
EENT: Denies Sore Throat
Respiratory: Reports Cough
Cardiac: Denies Chest Pain
Abdomen/GI: Denies Abdominal Pain, Nausea or Vomiting
Neuro: Reports Headache; Denies Dizzy
Physical Exam
-
General: No Apparent Distress
HEENT: Moist Mucous Membranes
Respiratory: Rhonchi (some rhonchi) and Non Labored Respirations; Negative Wheezes or Accessory Resp Muscle Use
Cardiac: Regular Rhythm and S1/S2
GI: Soft and Nontender
Genito-urinary: No Costovertebral Tender
Neuro: AO x 3
Psych: Calm and Anxious
Data Reviewed
-
Labs: Labs Reviewed by me
[2024-03-16] MEDS: DUONEB 3 ML INH ×3 (11:36→18:47)
[2024-03-16] MEDS: XANAX 0.5 MG PO ×2 (12:09→19:25)
--- NOTE | 2024-03-16 12:13 | W.PN.URO.CBU ---
Today's Communication / Plan
-
no new gu interventions
Assessment / Plan
-
pt with left hydro on steriods with e coli uti pansensitive now stented feeling better wbc down still 14 k will continue present care reevaliate shelby calvo
Diagnosis
-
Date of Service: March 16, 2024
-
Patient Diagnosis:
Post Op Day:
Patient Diagnosis:
Post Op Day:
Patient Diagnosis:
uti fever left hydro no stones in upj but pyelo hydro and fevr chills
Post Op Day:
Subjective
-
still lingering discomfort but much improved with stent
Objective
-
Vital Signs
Temp Pulse Resp BP Pulse Ox
97.5 F 78 18 132/64 99
03/16/24 07:43 03/16/24 11:39 03/16/24 11:39 03/16/24 07:43 03/16/24 11:39
Intake and Output
03/15/24 03/16/24 03/17/24
06:59 06:59 06:59
Intake Total 4690 / 4690 2660 / 2660
Output Total 1250 / 1250
Balance 4690 / 4690 1410 / 1410
Intake:
Oral fluids 2640 / 2640 440 / 440
IV fluids (Total) 1950 / 1950 2200 / 2200
Normosol 500 / 500
IV piggybacks 100 / 100 20 / 20
Output:
Urine, Meehan 1250 / 1250
Other:
Number of approximated MODERATE 5
amounts of urine
Number of unmeasured liquid
stools
Rectum 1
Laboratory Results
03/16/24 06:21
03/16/24 06:21
Review of Systems
-
: Flank Pain
Physical Exam
-
General - well developed, well nourished, no acute distress
Chest - clear bilaterally
Abdomen - soft, non-tender, positive bowel sounds, no CVAT, no incisional pain or distention
Genitalia - normal
Rectal - normal
Skin - warm & dry with no rash
Neuro - AOx3, no motor deficits
Extremities - no clubbing, no cyanosis, no edema
Incision - clean, dry
Dressing - clean, dry, intact
Care Review
Data Reviewed
Discussed with: Hospitalist
[2024-03-16] MEDS: ORAJEL 10% GEL 1 APPLIC TOPICAL (15:11)
[2024-03-16 16:22] VITALS: BP 108/57
[2024-03-16] MEDS: ROCEPHIN 2000 MG IV (17:26)
[2024-03-16] MEDS: STERILE WATER FOR INJECTION 20 ML IV (17:26)
[2024-03-16] MEDS: HEPARIN SC (22:43)
[2024-03-16] MEDS: ORAJEL 10% GEL TOPICAL (22:43)
[2024-03-16 22:55] VITALS: BP 101/49
[2024-03-17] MEDS: TORADOL 10 MG IV ×3 (03:49→18:33)
[2024-03-17 04:19] LABS: Hematocrit 27.6 % (37.0-47.0); Hemoglobin 9.6 g/dL (12.0-16.0); Mean Corp Hgb Conc. 34.8 g/dL (33.0-37.0); Mean Corpuscular Hgb 30.9 pg (27.0-31.0); Mean Corpuscular Volume 88.7 fL (81.0-99.0); Platelet Count 291 10^3/uL (130-400); Red Blood Cell Count 3.11 10^6/uL (4.20-5.40); Red Cell Dist. Width 12.7 % (11.5-14.5); White Blood Cell Count 12.5 10^3/uL (4.8-10.8)
[2024-03-17 04:45] LABS: Blood Urea Nitrogen 15 mg/dl (7-17); Calcium 8.1 mg/dl (8.4-10.2); Carbon Dioxide 18 mmol/L (22-30); Chloride 107 mmol/L (98-107); Estimated Creatinine Clearance 75 ml/min; Glucose 132 mg/dl (70-99); Potassium 3.2 mmol/L (3.5-5.1); Sodium 137 mmol/L (135-145); eGFR > 60.00
[2024-03-17 07:45] VITALS: BP 108/67
[2024-03-17] MEDS: DUONEB 3 ML INH ×2 (08:15→15:12)
[2024-03-17] MEDS: ORAJEL 10% GEL TOPICAL ×3 (08:40→21:55)
[2024-03-17] MEDS: HEPARIN SC (08:40)
[2024-03-17] MEDS: PROTONIX 40 MG PO (08:41)
[2024-03-17] MEDS: KCL 40 MEQ PO (08:41)
[2024-03-17 08:53] LABS: Iron 50 ug/dl (37-170); Magnesium 1.8 mg/dl (1.6-2.3)
[2024-03-17 09:01] LABS: Percent Saturation 25 % (20-50); Total Iron Binding Capacity 200 ug/dl (265-497)
[2024-03-17 10:33] LABS: Vitamin D, 25-OH*** < 12.8 ng/mL (30-80)
[2024-03-17] MEDS: DUONEB INH ×2 (11:06→21:44)
[2024-03-17 11:07] LABS: Vitamin B12 656 pg/ml (239-931)
--- NOTE | 2024-03-17 12:17 | W.PN.HOSP.TC ---
Today's Communication/Plan
-
Continue antibiotics
Assessment / Plan
Assessment / Plan
63-year-old female with flank pain
CT of the abdomen and pelvis-moderate left perinephric edema and moderate left hydronephrosis down to the level of the UPJ. No evidence of obstructing calculus which may be due to recently passed calculus or nonspecific obstructing entity.
Herpetic rash on upper lip
Cardiovascular system S1-S2 appreciated
Chest clear to auscultation
Abdomen mild discomfort left side
No pedal edema
# Sepsis secondary to acute left pyelonephritis
She has seen [place] [facility] before for lithotripsies in the past.
Continue antibiotics
E. coli in urine but no bacteremia
Status post cystoscopy and left ureteral stent placement, pyuria noted at that time
White count improving
Meehan catheter continued today also
# URI-likely viral
Chest x-ray unremarkable
COVID and influenza negative
Was started on methylprednisolone and Zithromax as outpatient
Symptomatic treatment
# Hypokalemia-replace
# Anemia-no iron or B12 deficiency noted
# Vitamin D deficiency-replace
# History of DVT-not currently on anticoagulation
# DVT prophylaxis-Lovenox
# Full code
Discussed with nursing at bedside
Anticipated Discharge: Within 24 hours
Subjective/Interval History
-
Date of Service: March 17, 2024
Objective Data
-
Labs:
Laboratory Results
03/17/24
04:04
WBC 12.5 H
Hgb 9.6 L
Hct 27.6 L
Plt Count 291
Sodium 137
Potassium 3.2 L
Chloride 107
Carbon Dioxide 18 L
BUN 15
Creatinine 0.7
Glucose 132 H
Calcium 8.1 L
Vital Signs:
Vital Signs
Temp Pulse Resp BP Pulse Ox
97.9 F 80 17 108/67 100
03/17/24 07:45 03/17/24 08:17 03/17/24 08:17 03/17/24 07:45 03/17/24 08:17
I&O
03/16/24 03/17/24 03/18/24
06:59 06:59 06:59
Intake Total 2660 / 2660 540 / 540
Output Total 1250 / 1250 750 / 750
Balance 1410 / 1410 -210 / -210
--- NOTE | 2024-03-17 12:46 | W.PN.URO.CBU ---
Today's Communication / Plan
-
KEEP GARDNER FOR NOW REVEAUATE DAILY
Assessment / Plan
-
pt with left hydro on steriods with e coli uti pansensitive now stented feeling better wbc down still 14 k will continue present care reevaliate shelby fernandezovi
Diagnosis
-
Date of Service: March 17, 2024
-
Patient Diagnosis:
Post Op Day:
Patient Diagnosis:
Post Op Day:
Patient Diagnosis:
Post Op Day:
Patient Diagnosis:
uti fever left hydro no stones in upj but pyelo hydro and fevr chills
Post Op Day:
Subjective
-
STILL SINUS PROBLEMS BUT IS BETTER
Objective
-
Vital Signs
Temp Pulse Resp BP Pulse Ox
97.9 F 80 17 108/67 100
03/17/24 07:45 03/17/24 08:17 03/17/24 08:17 03/17/24 07:45 03/17/24 08:17
Intake and Output
03/16/24 03/17/24 03/18/24
06:59 06:59 06:59
Intake Total 2660 / 2660 540 / 540
Output Total 1250 / 1250 750 / 750
Balance 1410 / 1410 -210 / -210
Intake:
Oral fluids 440 / 440 540 / 540
IV fluids (Total) 2200 / 2200
Normosol 500 / 500
IV piggybacks 20 / 20
Output:
Urine, Gardner 1250 / 1250 750 / 750
Other:
Number of unmeasured liquid
stools
Rectum 1 1
Laboratory Results
03/17/24 04:04
03/17/24 04:04
Review of Systems
-
: Urgency
Physical Exam
-
General - well developed, well nourished, no acute distress
Chest - clear bilaterally
Abdomen - soft, non-tender, positive bowel sounds, no CVAT, no incisional pain or distention
Genitalia - normal
Rectal - normal
Skin - warm & dry with no rash
Neuro - AOx3, no motor deficits
Extremities - no clubbing, no cyanosis, no edema
Incision - clean, dry
Dressing - clean, dry, intact
Care Review
Data Reviewed
Discussed with: Nursing
[2024-03-17] MEDS: ZOVIRAX OINTMENT 5% 1 APPLIC TOPICAL ×3 (14:28→22:18)
[2024-03-17] MEDS: DRISDOL (VITAMIN D2) 50000 UNITS PO (14:28)
--- NOTE | 2024-03-17 15:16 | CM ---
CM reviewed chart- ADC tomorrow
Pt is POD#2 cysto with stent, ryna continues
Watch for VN needs on dc if ryan remains
Discharge Disposition- home for VN/ryan needs
[2024-03-17 15:19] VITALS: BP 127/75
[2024-03-17] MEDS: ROCEPHIN 2000 MG IV (18:22)
[2024-03-17] MEDS: STERILE WATER FOR INJECTION 20 ML IV (18:23)
[2024-03-17] MEDS: KCL 20 MEQ PO (22:17)
[2024-03-17 22:55] VITALS: BP 138/74
[2024-03-18] MEDS: TORADOL 10 MG IV
[2024-03-18 07:40] VITALS: BP 148/84
[2024-03-18 07:48] LABS: Hematocrit 30.1 % (37.0-47.0); Hemoglobin 10.4 g/dL (12.0-16.0); Mean Corp Hgb Conc. 34.6 g/dL (33.0-37.0); Mean Corpuscular Hgb 30.4 pg (27.0-31.0); Mean Platelet Volume 8.8 fL (7.4-10.4); Platelet Count 340 10^3/uL (130-400); Red Blood Cell Count 3.42 10^6/uL (4.20-5.40); Red Cell Dist. Width 12.6 % (11.5-14.5)
[2024-03-18] MEDS: DUONEB INH ×3 (07:56→15:20)
[2024-03-18 08:31] LABS: Blood Urea Nitrogen 9 mg/dl (7-17); Calcium 8.5 mg/dl (8.4-10.2); Carbon Dioxide 21 mmol/L (22-30); Chloride 106 mmol/L (98-107); Estimated Creatinine Clearance 75 ml/min; Glucose 123 mg/dl (70-99); Potassium 3.5 mmol/L (3.5-5.1); Sodium 136 mmol/L (135-145); eGFR > 60.00
[2024-03-18] MEDS: ORAJEL 10% GEL TOPICAL ×2 (09:37→16:09)
[2024-03-18] MEDS: PROTONIX 40 MG PO (09:38)
[2024-03-18] MEDS: VITAMIN D3 (cholecalciferol) 50 MCG PO (09:38)
[2024-03-18] MEDS: ZOVIRAX OINTMENT 5% TOPICAL ×3 (09:44→16:08)
--- NOTE | 2024-03-18 10:16 | CM ---
Patient seen bedside.
Patient aware of CM availability should home care needs arise.
Per patient she is anticipating Meehan catheter being removed prior to d/c.
Her son will stay with her a few days.
Plan: home no needs anticipated.
--- NOTE | 2024-03-18 10:22 | W.PN.HOSP.TC ---
Addendum entered and electronically signed by Nidia Vazquez MD 03/18/24 14:48:
Discussed with urology
Voiding after Meehan
ID and urology valuation appreciated
More than 30 minutes spent in discharge including
Final examination of the patient
Summarizing hospital stay
Instructions for continuing care to all relevant caregivers
Preparation of discharge records, prescriptions, and referral forms
Total time spent (in minutes): 38 min
Original Note:
Today's Communication/Plan
-
Meehan catheter-defer to urology
Antibiotics
Assessment / Plan
Assessment / Plan
63-year-old female with flank pain
CT of the abdomen and pelvis-moderate left perinephric edema and moderate left hydronephrosis down to the level of the UPJ. No evidence of obstructing calculus which may be due to recently passed calculus or nonspecific obstructing entity.
Herpetic rash on upper lip,
Cardiovascular system S1-S2 appreciated
Chest clear to auscultation
Abdomen mild discomfort left side
No pedal edema
Wants to go home
# Sepsis secondary to acute left pyelonephritis
She has seen [place] [facility] before for lithotripsies in the past.
Continue antibiotics
E. coli in urine but no bacteremia
Status post cystoscopy and left ureteral stent placement, pyuria noted at that time
White count has normalized
Meehan catheter -defer to urology
# Oral herpetic lesions-upper lip
Patient complains of congestion and pain and headache
Infectious disease to weigh in
# URI-likely viral
Chest x-ray unremarkable
COVID and influenza negative
Was started on methylprednisolone and Zithromax as outpatient
Symptomatic treatment
# Hypokalemia-replace
# Anemia-no iron or B12 deficiency noted
# Vitamin D deficiency-replace
# History of DVT-not currently on anticoagulation
# DVT prophylaxis-Lovenox
# Full code
Discussed with nursing at bedside
Anticipated Discharge: Within 24 hours
Subjective/Interval History
-
Date of Service: March 18, 2024
Objective Data
-
Labs:
Laboratory Results
03/18/24
07:02
WBC 8.0
Hgb 10.4 L
Hct 30.1 L
Plt Count 340
Sodium 136
Potassium 3.5
Chloride 106
Carbon Dioxide 21 L
BUN 9
Creatinine 0.7
Glucose 123 H
Calcium 8.5
Vital Signs:
Vital Signs
Temp Pulse Resp BP Pulse Ox
98.5 F 90 18 148/84 96
03/18/24 07:40 03/18/24 07:40 03/18/24 07:40 03/18/24 07:40 03/18/24 07:40
I&O
03/17/24 03/18/24 03/19/24
06:59 06:59 06:59
Intake Total 540 / 540 1680 / 1680
Output Total 750 / 750 2500 / 2500
Balance -210 / -210 -820 / -820
--- NOTE | 2024-03-18 11:12 | CON.ID ---
Consultation
-
Date/Time Consultation Requested: March 18, 2024 0952
Date/Time Consultation Performed: March 18, 2024 1110
Requesting Provider: Dr. Nidia Vazquez
Performing Provider: Dr. Alicia Vines
Reason for Consultation: Headache, herpes around the mouth
Chief Complaint / Past History
Chief Complaint
Lesions on lip and nose
History of Present Illness
63-year-old female with history of nephrolithiasis presented to the hospital on March 13 with left flank pain. Patient reports that she has not been feeling well for about 3 weeks with head cold, sinus congestion, frontal headache, initially with
a sore throat which now resolved. The day prior to admission, she went to urgent care and was prescribed steroid with azithromycin. On March 13, she noted left flank pain similar to her previous kidney stones. Positive fevers and chills. In the
ER she was febrile to 103, white count elevated. CAT scan of the abdomen pelvis showed left pyelonephritis and left hydronephrosis without obstructing stone. Patient was started on ceftriaxone. However she continued to have fevers and elevated
white count. She was taken to the OR on March 15, status post cystoscopy and left ureter stent placement. No obstructing stone noted. Large amount of purulent urine drained out from the stent. On March 14, patient noted to have vesicular
lesions on her upper lip. Lesions have progressed up the outside of her nose. Patient reports no history of cold sores. Sores are very painful. She continues to have sinus congestion, frontal headache stable. COVID-negative. Influenza negative.
Past History
Additional Past Medical History:
Nephrolithiasis
History of DVT
Allergy History:
clindamycin Allergy (Unknown, Verified 12/06/23 11:13)
Unknown
Penicillins Allergy (Unknown, Verified 12/06/23 11:13)
Rash
Medications Reviewed: Yes
Current Antibiotics:
Ceftriaxone day 6
Social History
Tobacco: Non-Smoker
Alcohol: None
Drug: None
Family History
Family History: Not Pertinent
Review of Systems
Review of Systems
HEENT: Sinus Problems; Negative Stiff Neck
Cardiovascular: Negative Chest Pain
Respiratory: Negative Dyspnea or Cough
Gasteroenterology: Negative Nausea, Vomiting or Diarrhea
Genital / Urological: Stones
Endocrine: Weakness
Neurological: Negative Dizziness
All systems: All other systems were reviewed and were negative
Vital Signs
Temp Pulse Resp BP Pulse Ox
98.5 F 90 18 148/84 96
03/18/24 07:40 03/18/24 07:40 03/18/24 07:40 03/18/24 07:40 03/18/24 07:40
Physical Exam
Physical Exam
Constitutional: No Acute Distress
Head: Other (Vesicular lesions on philtrum and apex of nose. Few lesions on lip crusting.)
Eyes: No Conjunctival Hemorrhage and Sclera Anicteric
Cardiovascular: Regular Rate and S1/S2
Pulmonary: Clear
Gastrointestinal: Soft, Non Tender, Non Distended and Normal Bowel Sounds
Genito-Urinary: Meehan and Clear Urine; Negative CVA Tenderness
Extremities: Negative Edema
Neurological: AO x 3; Negative Meningeal Signs
Lab / Diagnostic Study Results
03/18/24 07:02
03/18/24 07:02
Abs Immat Gran (auto) 0.2 10^3/uL (0-0.05) H 03/14/24 01:00
Absolute Neuts (auto) 18.9 10^3/uL (1.4-6.5) H 03/14/24 01:00
Absolute Lymphs (auto) 3.0 10^3/uL (1.2-3.4) 03/14/24 01:00
Absolute Monos (auto) 2.2 10^3/uL (0.1-0.6) H 03/14/24 01:00
Absolute Basos (auto) 0.1 10^3/uL (0-0.2) 03/14/24 01:00
Immature Gran % 0.7 % (0-0.5) H 03/14/24 01:00
Neutrophils % 77.8 % (42.2-75.2) H 03/14/24 01:00
Lymphocytes % 12.4 % (20.5-51.1) L 03/14/24 01:00
Monocytes % 8.8 % (1.7-9.3) 03/14/24 01:00
Eosinophils % 0.0 % (0-6) 03/14/24 01:00
Basophils % 0.3 % (0-2) 03/14/24 01:00
Lactic Acid 1.0 mmol/L (0.7-2.0) 03/13/24 23:21
Ur Squamous Epith Cells 0-2 /LPF (Few) 03/13/24 16:32
Microbiology Results
Micro:
03/14/24 00:59 Blood Culture - Preliminary
Blood/Venous No Growth in 4 days- Final report to follow
03/13/24 23:21 Blood Culture - Preliminary
Blood/Venous No Growth in 4 days- Final report to follow
03/13/24 16:32 Urine Culture - Final
Urine Escherichia coli
03/13/24 13:41 Influenza Types A & B ([facility]) - Final
Nasal Swab Negative for Influenza A & B, NAAT
Negative results must be combined with clinical observations
and patient history.
Nucleic Acid Amplification test (NAAT)performed on the
[employer] platform.
03/13/14 CT a/p: There is moderate left perinephric edema and moderate left hydronephrosis down to the level of the ureteropelvic junction with no evidence of obstructing ureteral calculus at this location. This finding may be on the basis of recently
passed calculus or noncalcific obstructing entities such as urothelial tumor, sloughed papilla or blood clot. There are multiple bilateral nonobstructing renal calculi measuring up to 10 mm
Assessment / Plan
# Complicated UTI/left pyelo and nonobstructing hydronephrosis (possibly passed stone)
# s/p sepsis
-s/p left ureter placement 03/14
- Urine cx E. coli
- Can transition ceftriaxone to cephalexin 500mg po qid through 03/26/24.
# Orolabial HSV, first episode
- Prescribed valacyclovir 2g po bid x 2 doses (although maybe too late for benefit)
# Viral URI
-Supportive care.
-Consider Flonase (not in our hospital formulary).
--- NOTE | 2024-03-18 12:46 | W.PN.URO.CBU ---
Today's Communication / Plan
-
voiding trial
Assessment / Plan
-
pt with left hydro on steriods with e coli uti pansensitive now stented feeling better ryan out homw if stable outpatient stone surgery
Diagnosis
-
Date of Service: March 18, 2024
-
Patient Diagnosis:
Post Op Day:
Patient Diagnosis:
Post Op Day:
Patient Diagnosis:
Post Op Day:
Patient Diagnosis:
Post Op Day:
Patient Diagnosis:
uti fever left hydro no stones in upj but pyelo hydro and fevr chills
Post Op Day:
Subjective
-
rerady for d/c pleaaw remove ryan
Objective
-
Vital Signs
Temp Pulse Resp BP Pulse Ox
98.5 F 90 18 148/84 96
03/18/24 07:40 03/18/24 07:40 03/18/24 07:40 03/18/24 07:40 03/18/24 07:40
Intake and Output
03/17/24 03/18/24 03/19/24
06:59 06:59 06:59
Intake Total 540 / 540 1680 / 1680 480 / 480
Output Total 750 / 750 2500 / 2500 700 / 700
Balance -210 / -210 -820 / -820 -220 / -220
Intake:
Oral fluids 540 / 540 1680 / 1680 480 / 480
Output:
Urine, Ryan 750 / 750 2500 / 2500 700 / 700
Other:
Number of unmeasured liquid
stools
Rectum 1
Laboratory Results
03/18/24 07:02
03/18/24 07:02
Review of Systems
-
: No Symptoms
Physical Exam
-
General - well developed, well nourished, no acute distress
Chest - clear bilaterally
Abdomen - soft, non-tender, positive bowel sounds, no CVAT, no incisional pain or distention
Genitalia - normal
Rectal - normal
Skin - warm & dry with no rash
Neuro - AOx3, no motor deficits
Extremities - no clubbing, no cyanosis, no edema
Incision - clean, dry
Dressing - clean, dry, intact
Care Review
Data Reviewed
Discussed with: Nursing
[2024-03-18] MEDS: VALTREX 2000 MG PO (14:41)
--- NOTE | 2024-03-18 14:47 | W.DS.TRANS ---
Addendum entered and electronically signed by Nidia Vazquez MD 03/19/24 08:31:
Dictation- [id number]
Original Note:
DC Summary - Legal Services Manager
-
Discharge Instructions:
Discharge Diagnosis/Procedures Pyelonephritis
Herpes infection-lip
Upper respiratory infection
Anemia
Low potassium
Vitamin D deficiency
History of DVT in the past
Diet As tolerated
Activity As tolerated,No strenuous activity
Driving Restrictions As prior to admission
Instructions:
Stand-Alone Forms:
Changes to Home Medications: Yes
Discharge Medications:
DC Medications w/original date entered in [employer]
benzonatate 100 mg capsule 100 mg PO TIDPRN PRN cough - USE SECOND #20 caps 03/18/24
cephalexin 500 mg capsule 500 mg PO QID Urinary issue #34 caps 03/18/24
cholecalciferol (vitamin D3) 50 mcg (2,000 unit) tablet 50 mcg PO DAILY vit d def #0 tabs 03/18/24
fluticasone propionate 50 mcg/actuation nasal spray,suspension (Flonase Allergy Relief) 1 spray intranasal BID stuffy nose #16 grams 03/18/24
guaifenesin 600 mg tablet, extended release 12 hr (Mucinex) 600 mg PO BID resp infection #10 tabs 03/18/24
valacyclovir 500 mg tablet 2,000 mg (4 x 500 mg) PO BID@1400,2200 herpes #4 tabs 03/18/24
Home Medication Changes
All the above medicines are new
Zithromax and methylprednisolone stopped
Pending Results: No
[2024-03-18 15:15] VITALS: BP 137/83
== END 2024-03-18 16:00 | disposition home or self-care (01) | DRG 854 ==
LOC: 1 ACUTE 18:41
PROVIDERS: Internal Medicine; Specialist; ADMITTING PHYSICIAN Hospitalist; ATTENDING PHYSICIAN Hospitalist; CONSULT PHYSICIAN Internal Medicine Infectious Disease; CONSULT PHYSICIAN Specialist; EMERGENCY PHYSICIAN Emergency Medicine; FAMILY PHYSICIAN Family Medicine
PROC: BT1F1ZZ Fluoroscopy of Left Kidney, Ureter and Bladder using Low Osmolar Contrast (ICD-10-PCS; 2024-03-15)
PROC: 0T778DZ Dilation of Left Ureter with Intraluminal Device, Via Natural or Artificial Opening Endoscopic (ICD-10-PCS; 2024-03-15)
DX: A41.9 Sepsis, unspecified organism (principal); N13.6 Pyonephrosis; Z11.52 Encounter for screening for COVID-19; J06.9 Acute upper respiratory infection, unspecified; D64.9 Anemia, unspecified; E55.9 Vitamin D deficiency, unspecified; A60.04 Herpesviral vulvovaginitis
CPT/HCPCS: 71046; 74176; 74420; 76000; 80048; 80053; 81003; 81015; 82306; 82607; 82728; 83540; 83550; 83605; 83735; 85025; 85027; 87040; 87077; 87086; 87186; 87502; 87811; 94640; 96361; 96374; 96375; 99285; A4300; C2617

== ENCOUNTER 2024-03-26 06:33 | Day surgery (SDC) | payer BC, SELFPAY ==
[2024-03-26] VITALS (8 sets, daily range): BP systolic 99–130; BP diastolic 47–76; BMI 26.6
[2024-03-26] MEDS: COMPAZINE 5 MG IV (12:02)
[2024-03-26] MEDS: SUBLIMAZE 50 MCG IV ×2 (12:09→12:23)
[2024-03-26] MEDS: Pyridium 200 MG PO (13:07)
== END 2024-03-26 13:38 | disposition home or self-care (01) ==
LOC: SDS 06:33
PROVIDERS: ATTENDING PHYSICIAN Specialist
DX: N20.0 Calculus of kidney (principal); N12 Tubulo-interstitial nephritis, not specified as acute or chronic; B96.20 Unspecified Escherichia coli [E. coli] as the cause of diseases classified elsewhere
CPT/HCPCS: 52356; 74018; 76000; 93005; C1894; C2617